=== PATIENT | female | born 1980 | race Caucasian/White ===

== ENCOUNTER 2017-10-26 18:25 | Emergency (ER) | payer OTHER ==
[~2017-10-26] VITALS: Ht 157.5 cm; Wt 73.0 kg
[~2017-10-26 18:25] MED LIST: CIPROFLOXACIN500 MG PO; CLONAZEPAM1 M2 PO; CLONAZEPAM1 MG PO; CLONIDINE HCL0.1 MG PO; CYCLOBENZAPRINE10 M1 PO; DELTASONE20 MG PO; DOXYCYCLINE MO100 MG PO; FIORICET 325 MG1 TAB PO; FLEXERIL10 MG PO; GABAPENTIN100 M2 PO; IBUPROFEN800 M1 PO; KETOROLAC TROME10 M1 PO; LITHIUM CARBON450 MG PO; LITHIUM CARBON600 MG PO; MEDROL4 M2 PO; PERCOCET 325 MG1 TA2 PO; PERCOCET 5-3251 EACH PO; PROZAC20 M2 PO; ROBAXIN-750750 MG PO; ROBITUSSIN W/CO10 ML PO; SEROQUEL XR200 MG PO; SERTRALINE HYDR50 MG PO; TYLENOL WITH C1 EACH PO; VICODIN 300 MG-1 TAB PO; ZITHROMAX Z-PA250 M1 PO
[2017-10-26 18:32] VITALS: BP 127/77
[2017-10-26] MEDS ORDERED: PERCOCET 5-3251 EACH PO (20:17)
[2017-10-26] MEDS ORDERED: ZOFRAN4 M2 PO (20:17)
[2017-10-26] MEDS ORDERED: IBUPROFEN600 M1 PO (20:17)
--- NOTE | 2017-10-26 20:22 | ED GENERAL ADULT ---
History of Present Illness General Chief Complaint: General Adult Stated Complaint: PT IS HAVING PAIN IN THE SCIATIC NERVE Source: patient, old records Exam Limitations: no limitations Vital Signs & Intake/Output Vital Signs & Intake/Output Vital Signs Date Time Temp Pulse Resp B/P B/P Pulse O2 O2 Flow FiO2 Mean Ox Delivery Rate 10/26 1832 98.7 82 18 127/77 97 Room Air ED Intake and Output 10/27 0000 10/26 1200 Intake Total 0 Output Total Balance 0 Intake, Oral 0 Patient 161 lb Weight Weight Reported by Patient Measurement Method Allergies Coded Allergies: MDX - Amoxicillin (AMOXICILLIN) (Severe, THROAT CLOSES 08/17/15) MDX - Penicillin (PENICILLIN) (THROAT SWELLING 08/17/15) Reconcile Medications Clonazepam 1 MG TABLET 1 TAB PO DAILY MENTAL HEALTH (Reported) Fluoxetine HCl (Prozac) 20 MG CAPSULE 3 CAP PO QAM MENTAL HEALTH (Reported) Gabapentin 100 MG CAPSULE 2 CAP PO QPM RESTLESS LEGS (Reported) Ibuprofen 600 MG TABLET 1 TAB PO Q6P PRN PAIN with food Methylprednisolone. (Medrol) 4 MG TAB.DS.PK 1 DP PO AD SCIATICA 6 on day 1 then reduce by one tablet daily until gone Ondansetron HCl (Zofran) 4 MG TABLET 1 TAB PO Q6-8P nausea Oxycodone HCl/Acetaminophen (Percocet 5-325 MG Tablet) 5 MG-325 MG TABLET 1 TAB PO Q6P PRN severe pain Tylenol With Codeine (Tylenol With Codeine #3 Tablet) 300 MG-30 MG TABLET 1 TAB PO Q4-6 PRN PRN PAIN Triage Note: PT FROM HOME C/O LEFT SIDED LOWER EXT SCIACTA PAIN . PT WAS SEEN HERE IN ER 3-4 DAYS PRIOR IN ER AND SENT HOME WITH PREDNISONE AND TYLENOL WITH CODEINE. PT STATES SHE FEELS NAUSEA FROM THE MEDS AND NOW HER LEFT FOOT FEELS "TINGLY" PT ABLE TO WALK WITH STEADY GAIT. Triage Nurses Notes Reviewed? yes : No Patient currently breastfeeds: No HPI: This is a 37-year-old female with history of bipolar depression, asthma, sciatica, presenting to the emergency department with left lower back pain which radiates down her buttock, left lower extremity to the foot which feels electric , tingling in nature. The pain is described as very severe, worse with straight leg raise. She has no other complaints on presentation. She was seen in the emergency department recently this very type of pain, was prescribed Tylenol with codeine and a Medrol Dosepak. Patient has been taking the medication as prescribed but continues to have debilitating pain. She denies any precipitating trauma, states she had an unremarkable MRI a few years ago. She has no recent history of IV drug use, fever, saddle anesthesia, urinary or fecal incontinence or retention. (Stew Llanes MD) Past History Travel History Traveled to [place] past 21 day No Medical History Any Pertinent Medical History? see below for history Neurological: NONE EENT: NONE Cardiovascular: NONE Respiratory: asthma Gastrointestinal: NONE Hepatic: NONE Renal: NONE Musculoskeletal: sciatica Psychiatric: bipolar disease, depression Endocrine: NONE Blood Disorders: NONE Cancer(s): NONE END USER CONSULTANT/Reproductive: NONE Tetanus Vaccine: 09/09/13 Surgical History Surgical History: non-contributory Psychosocial History What is your primary language Brazilian Tobacco Use: Current Not Daily ETOH Use: denies use Illicit Drug Use: denies illicit drug use Family History Hx Contributory? No (Stew Llanes MD) Review of Systems Review of Systems Constitutional: Reports: no symptoms. EENTM: Reports: no symptoms. Respiratory: Reports: no symptoms. Cardiovascular: Reports: no symptoms. GI: Reports: no symptoms. Genitourinary: Reports: no symptoms. Musculoskeletal: Reports: see HPI. Skin: Reports: no symptoms. Neurological/Psychological: Reports: see HPI. (Stew Llanes MD) Physical Exam Physical Exam General Appearance: well developed/nourished, no apparent distress, alert, anxious, thin Comments: This is a thin, uncomfortable appearing young woman, pain with straight leg raise, intact distal sensation, movement, pulse to all extremities. She has moist mucous membranes, benign cardiopulmonary and abdominal exam. Skin is warm and dry. She is neurologically intact and normal. She is not hyperreflexive in the lower extremities. She has focal tenderness to the left lateral lumbosacral region. There are no skin changes. Core Measures ACS in differential dx? No CVA/TIA Diagnosis: No Sepsis Present: No Sepsis Focused Exam Completed? No (Stew Llanes MD) Progress Differential Diagnoses I considered the following diagnoses in my evaluation of the patient: Appears to be sciatica pain, unclear etiology, possibly secondary to bulging disc. Patient is neurologically intact, has no back pain red flags such as fever, IV drug use, saddle anesthesia, incontinence. She has no history of cancer, trauma to the area. Plan of Care: Plan for outpatient treatment, escalation of medication. She will be started on ibuprofen, 600 mg every 6 hours. She will also be prescribed Percocet for breakthrough pain. Patient is told to discard her Tylenol with codeine, as this in combination with Percocet could potentially lead to acetaminophen toxicity. Patient expresses understanding of this subtlety. She plans to follow-up with outpatient orthopedic surgeon and will return to the emergency department if her symptoms worsen or persist. She is discharged home. Initial ED EKG: none (Stew Llanes MD) Departure Departure Time of Disposition: 2013 Disposition: HOME OR SELF CARE Condition: Stable Clinical Impression Primary Impression: Sciatica Referrals: Emre Parmar MD (PCP/Family) Additional Instructions: Thank you for coming to [facility] today. Please follow-up with your primary doctor as we discussed, also follow-up with orthopedic surgery as you have previously planned. Please take the Percocet for breakthrough pain. In addition, I recommend that you take 600 mg of ibuprofen every 6 hours for the next 2-3 days, and then taking it every 6 hours as needed. If you become nauseated with the medication, please take Zofran which have also prescribed. Please return to the emergency department if your symptoms worsen or persist you develop any new or concerning symptoms such as weakness, shortness of breath, chest pain, headache, lightheadedness, or abdominal pain. Departure Forms: Customer Survey General Discharge Information Prescriptions: Current Visit Scripts Oxycodone HCl/Acetaminophen (Percocet 5-325 MG Tablet) 1 TAB PO Q6P PRN severe pain #10 TAB Ibuprofen 1 TAB PO Q6P PRN PAIN #20 TAB with food Ondansetron HCl (Zofran) 1 TAB PO Q6-8P #5 TAB (Stew Llanes MD) Resident Co-Sign Statement Statement: ED Attending supervision documentation- [] I saw and evaluated the patient. I have also reviewed all the pertinent lab results and diagnostic results. I agree with the findings and the plan of care as documented in the Resident's documentation. [x] I have reviewed the ED Record and agree with the Resident's documentation. [] Additions or exceptions (if any) to the Resident's note and plan are summarized below: [] (Florentino Frederick DO) Critical Care Note Critical Care Note Critical Care Time: non-applicable (Stew Llanes MD) ED Attending Observation Initial Observation Note: I have seen and personally examined RAJI GILMORE on 10/26/17 at 2308. I agree with the current emergency department documentation. The disposition (admission or discharge) is uncertain at this time, she needs a period of observation for the following reason(s): The ED Nurse caring for this patient has been personally informed as to what the patient is being observed for. (Stew Llanes MD)
== END 2017-10-26 20:26 ==
LOC: ERH 18:25
DX: M54.42 Lumbago with sciatica, left side (principal)